=== PATIENT | male | born 1955 | race American Indian/Alaskan Native ===

== ENCOUNTER 2018-10-14 09:07 | Day surgery (SDC) | payer OTHER ==
[2018-10-14] MEDS ORDERED: DIPRIVAN 10 MG/ML IV ONE ×2 (09:49)
--- NOTE | 2018-10-14 09:51 | Anesthesia Consultation ---
Anesthesia Consult and Med Hx Date of service: 10/14/18 - Airway Anesthetic Teeth Evaluation: Good ROM Head & Neck: Adequate Mental/Hyoid Distance: Adequate Mallampati Class: Class II Intubation Access Assessment: Good - Pulmonary Exam CTA: Yes - Cardiac Exam Cardiac Exam: RRR - Pre-Operative Health Status ASA Pre-Surgery Classification: ASA2 Proposed Anesthetic Plan: MAC - Pulmonary Hx Smoking: Yes (quit) Hx Asthma: No - Cardiovascular System Hx Hypertension: Yes Hx Coronary Artery Disease: No Hx Heart Attack/AMI: No - Gastrointestinal Hx Gastroesophageal Reflux Disease: Yes
--- NOTE | 2018-10-14 09:52 | Anesthesia Day of Surgery ---
Anesthesia Day of Surgery - Day of Surgery Patient Examined: Yes Patient H&P Reviewed: Yes Patient is NPO: Yes
[2018-10-14] MEDS ORDERED: XYLOCAINE MPF 2% ONE (10:00)
[2018-10-14] MEDS ORDERED: NACL 0.9% 1000 ML 1,000 ML IV SCH (10:00)
--- NOTE | 2018-10-14 10:28 | Operative Report ---
Operative Report Operative Report: Date of procedure: 10/14/2018 Preprocedure diagnosis: Personal history of colon polyps. Last colonoscopy 6 y ears ago. Post procedure diagnosis: Diverticulosis of the left colon Procedure: Colonoscopy to the cecum Endoscopist: Dr. Goode Anesthesia: Monitored anesthesia care per anesthesia department Estimated blood loss: 0 Medications: Monitored anesthesia care. See separate report by anesthesia for details. After careful discussion of the nature and purpose of the procedure as well as details of the technique risks benefits and alternatives the patient gave consent. Please see recent history and physical from the office. The patient was placed in the left lateral decubitus position and medicated per anesthesia. A rectal exam was performed sphincter tone was normal there were no masses palpable. The Niiki Pharman 570 scope was passed transanally and advanced under continuous direct vision without difficulty to the cecum. The colon was well prepared. The cecum was normal. The ascending colon was normal and on forward and retroflexed views. The transverse colon was normal. There were scattered diverticula throughout the descending and sigmoid colon. The rectum was normal on forward and retroflexed views. The procedure was well-tolerated overall and the patient was observed in recovery. Conclusions: Diverticulosis of the left colon. No recurrent polyps. Plan: Repeat colonoscopy in 5 years. Signed electronically: Iván Goode M.D.
--- NOTE | 2018-10-14 10:32 | Short Stay Summary ---
Short Stay Documentation Date of service: 10/14/18 Narrative H&P: The patient present for surveillance colonoscopy. Last study 6-7 years ago. - History Past Medical History: GERD, hypertension, hyperlipidemia Past Surgical History: Other (prostate surgery, hemorrhoid surgery) Social history: no significant social history - Allergies and Medications Current Medications: Allergies chocolate flavor Allergy (Severe, Verified 10/14/18 09:55) Anaphylaxis,ITCHING peanut Allergy (Severe, Verified 10/14/18 09:55) Anaphylaxis,ITCHING Sulfa (Sulfonamide Antibiotics) Allergy (Severe, Verified 10/14/18 09:55) Anaphylaxis,ITCHING Home Medications Medication Instructions Recorded Confirmed Last Taken Type Aspirin 1 tab PO DAILY 10/14/18 10/14/18 10/13/18 History Daily Probiotic 1 tab PO DAILY 10/14/18 10/14/18 10/13/18 History Pantoprazole 1 tab PO DAILY 10/14/18 10/14/18 10/13/18 History RX: Gemfibrozil [Lopid] 1 tab PO DAILY 10/14/18 10/14/18 10/13/18 History RX: Tamsulosin [Flomax] 1 tab PO DAILY 10/14/18 10/14/18 10/13/18 History RX: hydroCHLOROthiazide [HCTZ] 1 tab PO DAILY 10/14/18 10/14/18 10/13/18 History Active Medications Sodium Chloride (Nacl 0.9% 1000 Ml) 1,000 mls @ 50 mls/hr IV DIRECT MITUL Last Admin: 10/14/18 09:40 Dose: 50 mls/hr Documented by: - Physical exam General appearance: no acute distress, well-nourished Integumentary: no rash, no growths, no abnormal pigmentation HEENT: Atraumatic, PERRLA, EOMI, Mucous membr. moist/pink Lungs: Clear to auscultation, Normal air movement Breasts: deferred Heart: Regular rate, Normal S1, Normal S2, No murmurs Gastrointestinal: normoactive bowel sounds, no tenderness, no distended, no masses, no guarding, no organomegaly Male Genitourinary: deferred Rectal Exam: normal exam-external/orifice, normal rectal tone, no mass Extremities: no ischemia, pulses intact, pulses symmetrical, No edema, normal temperature, normal color, Full ROM Neurological: Normal gait, Normal speech, Strength at 5/5 X4 ext, Normal tone, Sensation intact, Cranial nerves 3-12 NL - Brief post op/procedure progress note Date of procedure: 10/14/18 Findings: report dictated. Estimated blood loss: none Pathology: none Condition: stable - Disposition Condition at discharge: Good - Discharge Diagnoses (1) History of colon polyps Status: Acute Short Stay Discharge Plan Activity: other (no driving for 24 hours) Weight Bearing Status: Full Weight Bearing Diet: regular Additional Instructions: Post Sedation D/C Instructions When you return home you may resume your regular diet unless otherwise directed. -Go directly home from the hospital and rest quietly. You may resume normal activities tomorrow. -Do NOT drive, return to work, operate any machinery or make any important personal or business decisions today. -Do NOT drink any alcohol or take nerve or sleeping drugs. They add to the effects of the medicine still present in your body. -PLEASE TAKE A DAILY FIBER WITH PLENTY OF FLUIDS DAILY Follow up with: AVERY FREIRE MD [Primary Care Provider] - 7 Days
[2018-10-14 10:55] VITALS: BP 111/66
== END 2018-10-14 09:08 | disposition home or self-care (01) ==
LOC: GIO 09:07
PROVIDERS: ATTEND Internal Medicine Gastroenterology
DX: Z12.11 Encounter for screening for malignant neoplasm of colon (principal); K57.30 Diverticulosis of large intestine without perforation or abscess without bleeding; E78.00 Pure hypercholesterolemia, unspecified; I10 Essential (primary) hypertension; K21.9 Gastro-esophageal reflux disease without esophagitis; Z87.891 Personal history of nicotine dependence; Z88.2 Allergy status to sulfonamides; Z79.899 Other long term (current) drug therapy; Z79.82 Long term (current) use of aspirin; Z91.010 Allergy to peanuts; Z86.010 Personal history of colon polyps; Z90.49 Acquired absence of other specified parts of digestive tract; Z98.890 Other specified postprocedural states; Z88.8 Allergy status to other drugs, medicaments and biological substances
CPT/HCPCS: 45378; J2704; J7030